=== PATIENT | male | born 1965 | race Caucasian/White ===

== ENCOUNTER 2018-07-17 09:01 | Day surgery (SDC) | payer BC ==
[~2018-07-17 09:01] MED LIST: ACETAMINOPHEN 1,000 MG/100 ML BTL IV ONE
[2018-07-17] MEDS ORDERED: HYDROCODONE/APAP 5/325MG TABLET PO ONE (09:02)
[2018-07-17] MEDS ORDERED: LIDOCAINE 2% MDV (20MG/ML) 20ML VIAL IV ONE (09:02)
[2018-07-17] MEDS ORDERED: BUPIVACAINE 0.25% W/EPI MPF 30ML VIAL IVP ONE (09:02)
[2018-07-17] MEDS ORDERED: MIDAZOLAM HCL 2MG/2ML VIAL IV ONE (09:02)
[2018-07-17] MEDS ORDERED: PROPOFOL 10 MG/ML VIAL IV ONE (09:02)
[2018-07-17] MEDS ORDERED: SEVOFLURANE 250 ML INH ONE (09:02)
[2018-07-17] MEDS ORDERED: FENTANYL PF 100MCG/2ML VIAL IV ONE (09:02)
[2018-07-17] MEDS ORDERED: ONDANSETRON HCL IV 4 MG/2 ML VIAL IVP ONE (09:02)
--- NOTE | 2018-07-17 15:10 | Operative Note ---
DATE OF SURGERY: 07/17/2018 Surgeon: Иван Allen DO PREOPERATIVE DIAGNOSES: 1. Torn medial meniscus of the right knee. 2. Chondromalacia of the right knee. POSTOPERATIVE DIAGNOSES: 1. Torn medial meniscus of the right knee. 2. Chondromalacia of the patella right knee. 3. Synovitis right knee. OPERATION: 1. Arthroscopic partial medial meniscectomy, right knee. 2. Arthroscopic chondroplasty of the patella, right knee. 3. Arthroscopic partial synovectomy, right knee. DESCRIPTION OF PROCEDURE: This 52-year-old male was taken to the operating room and placed in the supine position on the operating room table where general anesthesia was induced. The right lower extremity was elevated, exsanguinated, and the tourniquet inflated to 300 mmHg. Arthroscopic knee slater applied. Right knee prepped with Hibiclens and draped in the usual sterile fashion. An inferolateral portal was established for the 4 mm arthroscope and initial evaluation of the joint demonstrated normal appearance of the suprapatellar pouch. However, there was advanced degenerative disease of the patella with essentially a grade 4 lesion being present. There was also intensive chronic synovitis in this area as well. Partial synovectomy was performed and chondroplasty of the patella was performed after probing through an inferomedial portal. This was then re-probed and the intraarticular cartilage seemed to be stable. The trochlea demonstrated essentially normal findings with only minimal scuffing of the articular cartilage. The medial compartment was entered, and the articular cartilage appeared normal. However, there was a degenerative tear of the medial meniscus at approximately the 12:30 position. It was very close to the inner margin and this was resected with the basket forceps and smoothed and contoured with the rotating shaver. The remainder was probed and found to be stable. The intracondylar notch was examined and found to be normal. The lateral compartment was entered and probing of the articular cartilage and the meniscus and lateral compartment did not reveal any pathology. The joint was copiously irrigated with lactated Ringer's solution. It was suctioned. The instruments were removed. The portals infiltrated with 0.25% Marcaine with epinephrine. Single stitch placed in each wound. Sterile dressings applied and the patient taken to the recovery room in satisfactory condition. GROSS PATHOLOGY: This patient demonstrated chronic synovitis in the anterior aspect of the knee which was debrided as described. Very severe grade 3 and very early grade 4 changes were present on the patella involving all areas of the articular cartilage of the patella. A small degenerative tear of the medial meniscus was present as described. CC: Pearl GARDUNO
== END 2018-07-17 12:12 | disposition home or self-care (01) ==
LOC: SUR 09:01
PROVIDERS: ATTEND Orthopaedic Surgery
DX: S83.241A Other tear of medial meniscus, current injury, right knee, initial encounter (principal); M22.41 Chondromalacia patellae, right knee; M65.88 Other synovitis and tenosynovitis, other site; I10 Essential (primary) hypertension; E11.9 Type 2 diabetes mellitus without complications; K21.9 Gastro-esophageal reflux disease without esophagitis
CPT/HCPCS: 29881; 29875; 01400; J2405; J3010